=== PATIENT | female | born 1965 | race American Indian/Alaskan Native ===

== ENCOUNTER 2018-07-05 03:32 | Emergency (ER) | payer SELFPAY ==
[2018-07-05 04:29] LABS: Basophils # (Auto) 0.1 K/mm3 (0.0-0.1); Basophils % (Auto) 0.9 % (0.0-1.8); Eosinophils # (Auto) 0.2 K/mm3 (0.0-0.4); Eosinophils % (Auto) 3.3 % (0.0-4.3); Hematocrit 35.6 % (30.3-42.9); Hemoglobin 12.1 gm/dl (10.1-14.3); Lymphocytes # (Auto) 2.1 K/mm3 (1.2-5.4); Lymphocytes % (Auto) 34.4 % (13.4-35.0); Mean Corpuscular HGB Conc 34 % (30-34); Mean Corpuscular Hemoglobin 28 pg (28-32); Mean Corpuscular Volume 83 fl (79-97); Monocytes # (Auto) 0.6 K/mm3 (0.0-0.8); Monocytes % (Auto) 9.8 % (0.0-7.3); Platelet Count 303 K/mm3 (140-440); Red Blood Count 4.27 M/mm3 (3.65-5.03); Red Cell Distribution Width 16.1 % (13.2-15.2)
[2018-07-05] MEDS ORDERED: APRESOLINE PO ONE (04:33)
[2018-07-05 04:43] LABS: Blood Urea Nitrogen 18 mg/dL (7-17); Calcium 9.4 mg/dL (8.4-10.2); Hemolysis Index 2
--- NOTE | 2018-07-05 04:48 | Emergency Department Report ---
ED Palpitations HPI - General Chief Complaint: Chest Pain Stated Complaint: PALPATATIONS Time Seen by Provider: 07/05/18 03:41 Source: patient Mode of arrival: Stretcher Limitations: No Limitations - History of Present Illness Initial Comments: 52-year-old female with past medical history of obesity and hypertension presents to the Hospital complaining onset onset of palpitations that woke her up from her sleep. Patient states that it lasted until EMS arrival. She self reports that her her systolic pressure was greater than 200s and diastolic was greater than 100 upon EMS arrival. EMS trip sheet is not available for review. Since waiting in the ED symptoms have resolved and she no longer has palpitations. Other than feeling anxious she denies any associated symptoms including chest pain, shortness of breath, syncope, nausea, vomiting, or diaphoresis. Patient has been on Diovan HCT 160/25 the last 25 years but she has not seen a physician in 5 years. Her out-of-town physician has been refilling her medications without any labs or physical examination. Last week she was seen at [facility] for episode of her whole body tensing up and anxiety. Blood pressure was also elevated at that time. She is scheduled for follow-up with a PMD for blood pressure management on July 09. She denies recent travel history, calf tenderness, edema, or history of PE/ DVT. - Related Data Allergies Allergy/AdvReac Type Severity Reaction Status Date / Time Penicillins Allergy Unknown Unknown Verified 07/05/18 04:55 ED Review of Systems ROS: Stated complaint: PALPATATIONS Other details as noted in HPI Comment: All other systems reviewed and negative ED Past Medical Hx - Past Medical History Previous Medical History?: Yes Hx Hypertension: Yes Additional medical history: Obesity - Social History Smoking Status: Never Smoker Substance Use Type: None ED Physical Exam - General Limitations: No Limitations - Other Other exam information: General: No limitations, patient is alert in no acute distress Head exam: Atraumatic, normocephalic Eyes exam: Normal appearance, pupils equal reactive to light, extraocular movements intact ENT: Moist mucous membrane, normal oropharynx Neck exam: Normal inspection, full range of motion, no meningismus nontender Respiratory exam: Clear to auscultation bilateral, no wheezes, rales, crackles Cardiovascular: Normal rate and rhythm, normal heart sounds Abdomen: Soft, nondistended, and nontender, with normal bowel sounds, no rebound, or guarding Extremity: Full range of motion normal inspection no deformity Back: Normal Inspection, full range of motion, no tenderness Neurologic: Alert, oriented x3, cranial nerves intact, no motor or sensory deficit Psychiatric: normal affect, normal mood Skin: Warm, dry, intact ED Course Vital Signs 07/05/18 07/05/18 07/05/18 03:44 03:48 03:58 Temperature 98 F Pulse Rate 69 Respiratory 18 Rate Blood Pressure 181/103 O2 Sat by Pulse 97 99 Oximetry 07/05/18 07/05/18 07/05/18 04:00 04:15 04:30 Temperature Pulse Rate 64 69 66 Respiratory 19 11 L 20 Rate Blood Pressure 173/93 165/100 160/99 O2 Sat by Pulse 95 97 96 Oximetry - Consultations Consultation #1: 07/05/18 04:44 case d/w Noah (cards) no med adjustment rec at this time. Rec f/u as scheduled ED Medical Decision Making - Lab Data Result diagrams: 07/05/18 04:00 07/05/18 04:00 Lab Results 07/05/18 07/05/18 07/05/18 Range/Units 04:00 04:00 04:00 WBC 6.0 (4.5-11.0) K/mm3 RBC 4.27 (3.65-5.03) M/mm3 Hgb 12.1 (10.1-14.3) gm/dl Hct 35.6 (30.3-42.9) % MCV 83 (79-97) fl MCH 28 (28-32) pg MCHC 34 (30-34) % RDW 16.1 H (13.2-15.2) % Plt Count 303 (140-440) K/mm3 Lymph % (Auto) 34.4 (13.4-35.0) % Bracken % (Auto) 9.8 H (0.0-7.3) % Eos % (Auto) 3.3 (0.0-4.3) % Baso % (Auto) 0.9 (0.0-1.8) % Lymph # 2.1 (1.2-5.4) K/mm3 Bracken # 0.6 (0.0-0.8) K/mm3 Eos # 0.2 (0.0-0.4) K/mm3 Baso # 0.1 (0.0-0.1) K/mm3 Seg Neutrophils % 51.6 (40.0-70.0) % Seg Neutrophils # 3.1 (1.8-7.7) K/mm3 PT 13.7 (12.2-14.9) Sec. INR 1.00 (0.87-1.13) Sodium 140 (137-145) mmol/L Potassium 3.6 (3.6-5.0) mmol/L Chloride 99.4 (98-107) mmol/L Carbon Dioxide 26 (22-30) mmol/L Anion Gap 18 mmol/L BUN 18 H (7-17) mg/dL Creatinine 1.2 (0.7-1.2) mg/dL Estimated GFR 58 ml/min BUN/Creatinine Ratio 15 % Glucose 97 (65-100) mg/dL Calcium 9.4 (8.4-10.2) mg/dL Magnesium 2.00 (1.7-2.3) mg/dL Troponin T < 0.010 (0.00-0.029) ng/mL TSH (0.270-4.200) mlU/mL Free T4 (0.76-1.46) ng/dL 07/05/18 Range/Units 04:00 WBC (4.5-11.0) K/mm3 RBC (3.65-5.03) M/mm3 Hgb (10.1-14.3) gm/dl Hct (30.3-42.9) % MCV (79-97) fl MCH (28-32) pg MCHC (30-34) % RDW (13.2-15.2) % Plt Count (140-440) K/mm3 Lymph % (Auto) (13.4-35.0) % Bracken % (Auto) (0.0-7.3) % Eos % (Auto) (0.0-4.3) % Baso % (Auto) (0.0-1.8) % Lymph # (1.2-5.4) K/mm3 Bracken # (0.0-0.8) K/mm3 Eos # (0.0-0.4) K/mm3 Baso # (0.0-0.1) K/mm3 Seg Neutrophils % (40.0-70.0) % Seg Neutrophils # (1.8-7.7) K/mm3 PT (12.2-14.9) Sec. INR (0.87-1.13) Sodium (137-145) mmol/L Potassium (3.6-5.0) mmol/L Chloride (98-107) mmol/L Carbon Dioxide (22-30) mmol/L Anion Gap mmol/L BUN (7-17) mg/dL Creatinine (0.7-1.2) mg/dL Estimated GFR ml/min BUN/Creatinine Ratio % Glucose (65-100) mg/dL Calcium (8.4-10.2) mg/dL Magnesium (1.7-2.3) mg/dL Troponin T (0.00-0.029) ng/mL TSH 4.360 H (0.270-4.200) mlU/mL Free T4 1.50 H (0.76-1.46) ng/dL - EKG Data -: EKG Interpreted by In EKG shows normal: sinus rhythm, axis (qrs -4), QRS complexes (qrsd 104), ST-T waves (no stemi/t inv, lvh) Rate: bradycardia (57) - EKG Data When compared to previous EKG there are: previous EKG unavailable - Medical Decision Making Patient presents to the Hospital of palpitations while sleeping that resolved prior to evaluation. Blood pressure also improved prior to arrival. Patient denies any associated symptoms and feeling anxious. Patient has a heart rate in the 50's to 60's without any signs of tachycardia. Initial ED evaluation unremarkable. Blood pressure spontaneously improved with rest well. Case discussed with component lab tech in no medication adjustment recommended at this time. Patient informed how to take her pulse and the importance of measuring both her pulse and blood pressure measurements during these episodes and when she is feeling fine. Patient be discharged to continue outpatient medication adjustment. Given patient's body habitus is possible that she is at risk for sleep apnea as well and needs further workup. BP slightly increased prior to discharge with systolic in the 170s and diastolic at 100 even. Patient states she does not consistently take her blood pressure medication the same time every day. Patient instructed to take at the same time every day. Dose of her medication was given prior to discharge the patient states she was shot of take the medication every day at 6 AM. - Differential Diagnosis anxiety, sleep apnea, palpitations, arrhythmia, hypertensive urgency/emerge Critical Care Time: No Critical care attestation.: If time is entered above; I have spent that time in minutes in the direct care of this critically ill patient, excluding procedure time. ED Disposition Clinical Impression: Hypertension, Palpitation, Obesity Disposition: DC-01 TO HOME OR SELFCARE Is pt being admited?: No Does the pt Need Aspirin: No Condition: Stable Instructions: Palpitations (ED), Hypertension (ED) Additional Instructions: Continue your current medication as prescribed. Follow up with the doctor as scheduled. Continue to monitor and record your blood pressure and heart rate as discussed. Return if symptoms worsen as indicated by your discharge instructions. Referrals: PRIMARY CAREMD [Primary Care Provider] - 07/09/18 (As scheduled) Time of Disposition: 05:45
[2018-07-05 04:53] LABS: Free T4 (Free Thyroxine) 1.5 ng/dL (0.76-1.46)
[2018-07-05 05:29] LABS: BUN/Creatinine Ratio 15
[2018-07-05] MEDS ORDERED: DIOVAN PO ONE (05:44)
[2018-07-05] MEDS ORDERED: HCTZ PO ONE (05:44)
[2018-07-05 06:06] VITALS: BP 175/88
== END 2018-07-05 06:06 | disposition home or self-care (01) ==
LOC: ED 03:32
DX: I10 Essential (primary) hypertension (principal); R00.2 Palpitations; Z88.0 Allergy status to penicillin
CPT/HCPCS: 36415; 80048; 83735; 84439; 84443; 84484; 85025; 85610; 93005; 93010